=== PATIENT | female | born 1935 | race African-American/Black ===

== ENCOUNTER 2017-04-25 17:07 | Inpatient (IN) ==
[2017-04-25 17:51] LABS: Basophils % 0.7 % (0.0-0.8); Eosinophils % 0.7 % (0.00-10.9); Hematocrit 37.7 VOL% (35.7-47.0); Hemoglobin 12.4 GM/DL (12.0-16.0); Immature Granulocytes % 0.2 %; Immature Granulocytes Absolute 0.01 #; Lymphocytes # 2.5 10*3/uL (1.4-4.0); Lymphocytes % 40.9 % (21.3-54.2); Mean Corpuscular HGB Conc 32.9 GM/DL (32-36); Mean Corpuscular Hemoglobin 28 PG (27-34); Mean Corpuscular Volume 86.3 FL (87-102); Mean Platelet Volume 10.7 FL (9.6-12.0); Monocytes # 0.5 10*3/uL (0.11-0.8); Monocytes % 8.6 % (1.7-12.7); Neutrophils % 48.9 % (38.7-73.9); Platelet Count 253 T/CUMM (130-400); Red Blood Count 4.37 MC/CUMM (3.8-5.5); White Blood Count 6.1 T/CUMM (4-12)
--- NOTE | 2017-04-25 17:52 | EKG Report ---
Stationary ECG Study [facility] ER Test Date: 04/25/2017 5:52:17 PM Pat Name: MANUEL MORIN Department: Room: Gender: F Spraying Machine Operator: : [id number] Requested by: Cleveland Burton Order Number: [id number] Reading MD: FERMIN PRIDE Intervals [place] Rate: 59 P: 258 IA: 215 QRS: -24 QRSD: 128 T: 140 QT: 424 QTc: 424 Interpretive Statements ELECTRONIC ATRIAL PACEMAKER LEFT AXIS DEVIATION POSSIBLE RIGHT VENTRICULAR CONDUCTION DELAY LEFT VENTRICULAR HYPERTROPHY AND ST-T CHANGE Electronically Signed On 04-26-17 10:31:48 CDT by FERMIN PRIDE [email or web address]
--- NOTE | 2017-04-25 18:08 | XRay Report ---
Portable chest Date: 04/25/2017 Clinical history: Dizziness, nausea, vomiting Comparison: 02/19/2016 Technique: Portable AP sitting chest Findings: The heart is minimally enlarged with stable right subclavian atrioventricular permanent pacemaker. Chronic atelectatic scarring left lower lung zone with stable mediastinum. Postoperative findings in the thyroid bed. Osteopenia with degenerative changes. Impression: Stable cardiomegaly and right subclavian atrioventricular permanent pacemaker. Chronic atelectatic scarring in the left lower lung zone with no acute cardiopulmonary pathology identified. Osteopenia. PROCEDURE INTERPRETED AT [facility] DEPARTMENT OF RADIOLOGY Final Report Signed by: Dr. Zari Larry
--- NOTE | 2017-04-25 18:09 | XRay Report ---
Exam: XR KUB Date: 04/25/2017 5:46 PM Comparison: 01/02/2015 Indication: Nausea, vomiting, abdominal cramping Technique:[Supine abdomen] Findings: Nonobstructed bowel gas pattern with increased fecal material. Arterial calcifications with degenerative changes and osteopenia. Permanent pacemaker. Impression: Nonobstructed bowel gas pattern with increased fecal material consistent with constipation. Vascular calcifications with permanent pacemaker. Osteopenia. PROCEDURE INTERPRETED AT [facility] DEPARTMENT OF RADIOLOGY Final Report Signed by: Dr. Zari Larry
[2017-04-25] MEDS ORDERED: ONDANSETRON 4 MG/2 ML VIAL ONE ×2 (18:25→19:06)
[2017-04-25] MEDS ORDERED: ONDANSETRON 4 MG/2 ML VIAL IV STA ×2 (18:26→19:05)
[2017-04-25 18:28] LABS: Alanine Aminotransferase 19 U/L (13-56); Albumin 3.4 G/DL (3.4-5.0); Alkaline Phosphatase 166 U/L (45-117); Aspartate Amino Transferase 29 U/L (0-37); Bilirubin,Total < 0.39 MG/DL (0.2-1.0); Blood Urea Nitrogen 17 MG/DL (7-18); Calcium 8.5 MG/DL (8.5-10.1); Glucose 114 MG/DL (74-106); Magnesium 2.1 MG/DL (1.8-2.4); Osmolality,Calculated 279.5 MOS/KG (273-304); Potassium 4.4 MMOL/L (3.5-5.1); Sodium 139 MMOL/L (136-145); Total Protein 8.3 G/DL (6.4-8.3)
[2017-04-25 18:35] LABS: Apearance,Urine CLOUDY (Clear); Bacteria,Urine Many /HPF (Few); Bilirubin,Urine Negative (Negative); Blood, Urine Moderate mg/dL (Negative); Glucose,Urine (UA) Negative (Negative); Ketones,Urine Negative (Negative); Nitrite,Urine Negative (Negative); Protein,Urine 30 MG/DL; RBC,Urine 123 /HPF (0-4); Urine Color Yellow (Yellow); Urine Specific Gravity 1.014 (1.001-1.035); Urine Urobilinogen < 2.0 EU/DL (0.2-1.0); WBC,Urine 288 /HPF (0-6)
[2017-04-25] MEDS ORDERED: cefTRIAXone 1,000 MG in SODIUM CHLORIDE 0.9% 100 ML IV STA (18:45)
[2017-04-25] MEDS ORDERED: cefTRIAXone 1,000 MG VIAL ONE (18:49)
--- NOTE | 2017-04-25 19:36 | Emergency Department Note ---
Velma Rose Brittany, am scribing for, and in the presence of, Meng Zhong MD 18:58. Trevin Rose Charles R, MD, personally performed the services described in this documentation, ascribed by Mora Carreon in my presence, and it is both accurate and complete 936 . Arrival - Arrival Chief Complaint: Nausea/Vomiting/Diarrhea Stated Complaint: N/V ED Nursing Triage Note: PT BROUGHT BY EMS FROM [facility] FOR EVALUATION OF HEADACHE AND NAUSEA ALL DAY TODAY AND 2 EPISODES OF VOMITING. DILANTIN LEVEL ON 04/22 WAS 34.3 Mode of Arrival: Stretcher Limitations: No Limitations Source: Patient, Family Time Seen by Provider: 04/25/17 18:25 - History of Present Illness HPI Narrative: This is an 82 y/o black female, who presents to the ED by EMS with c/o GILL and vomiting which started earlier today. Pt and family are both poor historians so this will be limited. Per family, pt has been nauseated and vomiting all day. Pt states at times she is SOB. Pt has a HX of seizures and apparently takes Dilantin. Her Dilantin level was 34.4 3 days ago. Pt has no other complaints/ pain in the ED at this time. Pt has a PMHx of CVA, HTN, pacemaker, seizures, A- flutter, thyroid disorder, RA, GOUT, respiratory problems, and cardiac dysrhtyhmia. Pt has had a neurological surgery. Pt has a family medical Hx of heart disease, HTN, and stroke. Pt is a former smoker. Onset (ago): hour(s) (Started earlier this morning) Consistency: constant Severity: moderate Allergies/Adverse Reactions: Allergies Allergy/AdvReac Type Severity Reaction Status Date / Time tuberculin,PPD,multi-puncture Allergy Unknown/Unable Verified 04/25/17 17:20 to obtain Home Medications: Home Medications Medication Instructions Recorded Confirmed Type Aspirin [Ecotrin] 81 mg PO DAILY 05/07/15 04/25/17 History HYDROcodone/ACETAMIN 10-325 [[place] 1 tablet PO Q6H PRN #0 tablet 05/07/15 Rx 10-325] Metoprolol Succinate Xl [Toprol Xl] 50 mg PO DAILY tablet 05/07/15 04/25/17 Rx amLODIPine [Norvasc] 10 mg PO DAILY tablet 05/07/15 04/25/17 Rx Gabapentin Cap/Tab [Neurontin 100 mg PO BID capsule 06/19/15 04/25/17 Rx Cap/Tab] Warfarin [Coumadin] 5.5 mg PO SUTUTHSA 02/19/16 04/25/17 History Phenytoin ER Cap [Dilantin Cap] 100 mg PO BEDTIME 02/20/16 04/25/17 History Acetamin/Codeine 300-30 Tab 1 tablet PO Q4H PRN 04/25/17 04/25/17 History [Tylenol/Codeine #3] Calcium (Carb)/Vit D 250-125 1 tablet PO DAILY 04/25/17 04/25/17 History [Oscal 250 + D] Magnesium Hydroxide [Milk of 30 ml PO Q24H PRN 04/25/17 04/25/17 History Magnesia] Naproxen Sodium [Aleve] 440 mg PO Q24H PRN 04/25/17 04/25/17 History Ondansetron HCl 4 mg PO Q4H PRN 04/25/17 04/25/17 History Pantoprazole Tab [Protonix Tab] 40 mg PO QAM 04/25/17 04/25/17 History Potassium Chloride 20 meq PO DAILY 04/25/17 04/25/17 History Warfarin Sodium 5.5 mg PO SUTUTHSA 04/25/17 04/25/17 History Warfarin Sodium 6 mg PO MOWEFR 04/25/17 04/25/17 History traZODone [Desyrel] 50 mg PO BEDTIME 04/25/17 04/25/17 History Review of System - Review of System 12 point system: reviewed and no additional remarkable complaints except as stated - Review of System Gastrointestinal: Present: nausea, vomiting Neurological: Present: headache Medical,Surgical,& Family Hx - Medical History Cardio: History of: Cardiac Dysrhythmia, Hypertension, Pacemaker, Cardiovascular Problems (A flutter, pacemaker) Neurology: History of: Cerebrovascular Accident, Migraine, Seizures (unknown date) Endocrine: History of: Thyroid Disorder Rheumatology: History of;: Gout, Rheumatoid Arthritis Respiratory: History of: Pneumonia, Respiratory Problems Musculoskeletal: No history of: Amputation Hematology: No history of: Blood Transfusion Reaction Other: No history of: Anesthesia Reactions - Surgical History Cardiac Surgeries: Patient Denies: Cardiac Catheterization Neurologic Surgeries: Surgical HX of: Neurologic Surgery (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 years ago) HEENT Surgeries: Patient denies: Tonsilectomy & Adenoidectomy Abdominal Surgeries: Patient denies: Abdominal Surgery Reproductive Surgeries: Patient denies;: Genitourinary Surgery, Gynecologic Surgery - Family History Family History: Reports;: Family Heart Disease, Family Hypertension, Family Stroke Denies;: Family Anesthesia Reaction, Family Cancer, Family Diabetes - Social History Smoking Status: Former smoker Frequency of Alcohol Use: None Type of Drug Use: None Exam Vital Signs: Vital Signs Temperature 97.5 F L 04/25/17 17:07 Pulse Rate 60 04/25/17 18:45 Respiratory Rate 18 04/25/17 18:45 Blood Pressure 190/72 04/25/17 18:45 O2 Sat by Pulse Oximetry 96 04/25/17 18:45 - General General appearance: alert, in no apparent distress - Head Head exam: Present: atraumatic, normocephalic, normal inspection - Eye Eye exam: Present: other ([place]). Absent: nystagmus, miosis, mydriasis - ENT ENT exam: Present: normal exam, normal oropharynx, mucous membranes moist, TM's normal bilaterally, normal external ear exam - Neck Neck exam: Present: normal inspection, full ROM, trachea midline. Absent: tenderness, meningismus, lymphadenopathy, thyromegaly - Chest Chest inspection: Present: normal inspection, symmetric chest wall rise. Absent : tenderness, rash, abscess - Respiratory Respiratory exam: Present: rhonchi - Cardiovascular Cardiovascular exam: Present: normal rhythm, bradycardia, normal heart sounds. Absent: murmur, rubs, gallop, clicks, JVD - Abdominal Exam Abdominal exam: Present: soft, normal bowel sounds. Absent: distention, tenderness, guarding, rebound, rigidity - Rectal Exam Rectal exam: Present: deferred - Extremities Exam Extremities exam: Present: normal inspection, full ROM, normal capillary refill. Absent: tenderness, pedal edema, joint swelling, calf tenderness - Back Exam Back exam: Present: normal inspection, full ROM. Absent: tenderness, muscle spasm, rashes - Neurological Exam Neurological exam: Present: alert, oriented X3, CN II-XII intact. Absent: motor sensory deficit - Psychiatric Psychiatric exam: Present: normal affect, normal mood. Absent: depressed, agitated, anxious, manic - Skin Skin exam: Present: warm, dry, intact, normal color, other (Poor skin [place]). Absent: rash, cyanosis, diaphoresis, erythema, pallor, mottled Course - Consultations Consultation #1: Hospitalist will admit patient Time: 19:34 Results - Labs CBC & BMP: 04/25/17 17:45 04/25/17 17:45 Lab Results: I have reviewed the patients labs - Diagnostic Findings Procedure: Chest x-ray: report reviewed by me ( Stable cardiomegaly and right subclavian atrioventricular permanent pacemaker. Chronic atelectatic scarring in the left lower lung zone with no acute cardiopulmonary pathology identified. Osteopenia. ), KUB x-ray: report reviewed by me (Nonobstructed bowel gas pattern with increased fecal material consistent with constipation. Vascualr calcifications with permanent pacemaker. Osteopenia. ), CT Abdomen and Pelvis: pending Critical Care Time Critical Care Time: Yes Total Critical Care Time: 60 Disposition Clinical Impression: Gastroenteritis, Urinary tract infection, Nausea & vomiting, Dilantin toxicity , Confusion, Seizure disorder Case discussed with: patient, patient's family Disposition: Still a Patient Condition: Guarded Time of Disposition: 19:36
--- NOTE | 2017-04-25 19:54 | CT Report ---
Referring physician: Meng Zhong Exam: CT brain without contrast Date: 04/25/2017 Comparison: 03/09/2016 Reason: Confusion Technique: Axial images of the head were obtained without the use of contrast. Total DLP was 1025.60 mGy*cm. Findings: The right frontal horn remains larger in size than the left with no midline displacement. Prior bifrontal and right parietal craniotomies. Multiple cerebral hypodensities are noted especially in the right cerebral hemisphere. There is a hyperdense mass in the right parietal parafalcine area consistent with meningioma which measures 35 mm at the level of the previous measurement of 34 mm with surrounding edema. Stable abnormal base of skull with areas of rarefaction. Arterial calcifications. Minimal mucosal thickening/fluid in the paranasal sinuses. The mastoid air cells and are clear. Impression: Stable postoperative findings with chronic encephalomalacia/infarction in the right frontal, temporal, and parietal lobes. Right parietal meningioma which appears very minimally larger in size with adjacent edema. No evidence of hemorrhage or obvious acute infarction. The CT exam was performed using one or more of the following dose reduction techniques: Automated exposure control and adjustment of the mA and/or kV according to patient size. PROCEDURE INTERPRETED AT [facility] DEPARTMENT OF RADIOLOGY Final Report Signed by: Dr. Zari Larry
[2017-04-25] MEDS ORDERED: PROMETHAZINE 25 MG/1 ML VIAL IM PRN (20:21)
[2017-04-25] MEDS ORDERED: BISACODYL 5 MG TABLET PO PRN (20:21)
[2017-04-25] MEDS ORDERED: MORPHINE 2 MG/1 ML SYRINGE IV PRN (20:21)
[2017-04-25] MEDS ORDERED: ACETAMINOPHEN 325 MG TABLET PO PRN (20:21)
[2017-04-25] MEDS ORDERED: MAGNESIUM HYDROXIDE SUSP 30 ML UDCUP PO PRN (20:21)
--- NOTE | 2017-04-25 20:25 | Hospitalist History & Physical ---
Assessment and Plan (1) Acute UTI Status: Acute Current Visit: Yes (2) Infectious encephalopathy Status: Acute Current Visit: Yes (3) Intractable nausea and vomiting Status: Acute Current Visit: Yes Qualifiers: Vomiting type: unspecified Qualified Code(s): R11.2 - Nausea with vomiting , unspecified (4) Supratherapeutic INR Status: Acute Current Visit: Yes (5) Chronic a-fib Status: Acute Current Visit: Yes (6) Pacemaker Status: Acute Current Visit: Yes (7) Dilantin toxicity Status: Acute Current Visit: Yes Qualifiers: Encounter type: initial encounter Injury intent: accidental or unintentional Qualified Code(s): T42.0X1A - Poisoning by hydantoin derivatives , accidental (unintentional), initial encounter (8) Seizure disorder Status: Acute Current Visit: Yes (9) Right-sided uninodular goiter Status: Acute Current Visit: Yes (10) Hypertension Status: Acute Assessment and plan: Plan: Admit for IV antibiotics, check blood and urine cultures Hold Coumadin, recheck INR in a.m., no active bleeding Large goiter present for years according to the family Supportive care for abdominal pain, nausea vomiting Current Visit: Yes Qualifiers: Hypertension type: essential hypertension Qualified Code(s): I10 - Essential (primary) hypertension History of Present Illness Chief complaint: General malaise, nausea and vomiting, headache History of present illness: Ms. Lockhart is a 82 year old female who is here from the [facility] with nausea and vomiting and headache. She has history of hypertension, seizure disorder, A. fib with pacemaker and chronic anticoagulation. She appears encephalopathic and most of the history is provided by the family. They state they received a call from the snf regarding the patient having intractable nausea and vomiting. She had a headache as well, her CT scan is negative for acute pathology. Her Dilantin level was also found to be supratherapeutic as well as her INR. She reports abdominal pain, dizziness and persistent nausea. She denies abdominal pain or chest pain. She denies shortness of breath. Her symptoms are constant and severe. Home Medications Medication Instructions Recorded Confirmed Type Aspirin [Ecotrin] 81 mg PO DAILY 05/07/15 04/25/17 History HYDROcodone/ACETAMIN 10-325 [[place] 1 tablet PO Q6H PRN #0 tablet 05/07/15 Rx 10-325] Metoprolol Succinate Xl [Toprol Xl] 50 mg PO DAILY tablet 05/07/15 04/25/17 Rx amLODIPine [Norvasc] 10 mg PO DAILY tablet 05/07/15 04/25/17 Rx Gabapentin Cap/Tab [Neurontin 100 mg PO BID capsule 06/19/15 04/25/17 Rx Cap/Tab] Warfarin [Coumadin] 5.5 mg PO SUTUTHSA 02/19/16 04/25/17 History Phenytoin ER Cap [Dilantin Cap] 100 mg PO BEDTIME 02/20/16 04/25/17 History Acetamin/Codeine 300-30 Tab 1 tablet PO Q4H PRN 04/25/17 04/25/17 History [Tylenol/Codeine #3] Calcium (Carb)/Vit D 250-125 1 tablet PO DAILY 04/25/17 04/25/17 History [Oscal 250 + D] Magnesium Hydroxide [Milk of 30 ml PO Q24H PRN 04/25/17 04/25/17 History Magnesia] Naproxen Sodium [Aleve] 440 mg PO Q24H PRN 04/25/17 04/25/17 History Ondansetron HCl 4 mg PO Q4H PRN 04/25/17 04/25/17 History Pantoprazole Tab [Protonix Tab] 40 mg PO QAM 04/25/17 04/25/17 History Potassium Chloride 20 meq PO DAILY 04/25/17 04/25/17 History Warfarin Sodium 5.5 mg PO SUTUTHSA 04/25/17 04/25/17 History Warfarin Sodium 6 mg PO MOWEFR 04/25/17 04/25/17 History traZODone [Desyrel] 50 mg PO BEDTIME 04/25/17 04/25/17 History Allergies Allergy/AdvReac Type Severity Reaction Status Date / Time tuberculin,PPD,multi-puncture Allergy Unknown/Unable Verified 04/25/17 17:20 to obtain Medical,Surgical,& Family Hx - Medical History Cardio: History of: Cardiac Dysrhythmia, Hypertension, Pacemaker, Cardiovascular Problems (A flutter, pacemaker) Neurology: History of: Cerebrovascular Accident, Migraine, Seizures (unknown date) Endocrine: History of: Thyroid Disorder (Has a right-sided goiter "for many years," according to family) Rheumatology: History of;: Gout, Rheumatoid Arthritis Respiratory: History of: Pneumonia, Respiratory Problems Musculoskeletal: No history of: Amputation Hematology: No history of: Blood Transfusion Reaction Other: No history of: Anesthesia Reactions - Surgical History Cardiac Surgeries: Patient Denies: Cardiac Catheterization Neurologic Surgeries: Surgical HX of: Neurologic Surgery (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 years ago) HEENT Surgeries: Patient denies: Tonsilectomy & Adenoidectomy Abdominal Surgeries: Patient denies: Abdominal Surgery Reproductive Surgeries: Patient denies;: Genitourinary Surgery, Gynecologic Surgery - Family History Family History: Reports;: Family Heart Disease, Family Hypertension, Family Stroke Denies;: Family Anesthesia Reaction, Family Cancer, Family Diabetes - Social History Smoking Status: Former smoker Frequency of Alcohol Use: None Type of Drug Use: None Marital Status: Unknown Functional capacity: uses cane/walker Review of systems: A 12 point review of systems is negative except as specified in the HPI Exam - Constitutional Vitals: Period Temp Pulse Resp BP Sys/Candelario Pulse Ox Last 24 Hr 97.5 F-97.5 F 60-65 16-18 169-190/72-84 96-99 Exam: EXAM: CONSTITUTIONAL: non toxic, NAD HEENT: NC, AT, OP benign, JAKE, EOMI, large right-sided goiter lethargic, drowsy CV: RRR no m/g/r RESP: clear B/L, no w/r/r GI: abd soft, NT, ND, +bowel sounds INTEGUMENTARY: no lesions or rash EXTREMITIES: no c/c/e NEURO: no focal deficits PSYCH: Lethargic/drowsy but arousable Results - Labs CBC & BMP: 04/25/17 17:45 04/25/17 17:45 Lab Results: I have reviewed the past 24 hour labs - Impressions EKG with paced rhythm - Diagnostic Findings Procedure: Chest x-ray: image reviewed by me, report reviewed by me, KUB x-ray: image reviewed by me, report reviewed by me, CT - chest: image reviewed by me, report reviewed by me Quality Measures - VTE Contraindication to Pharmacological VTE Prophylaxis: Already on Theraputic Agent , No Prophylaxis Needed
[2017-04-25] MEDS ORDERED: WARFARIN 4 MG TABLET PO SCH (20:30)
[2017-04-25] MEDS ORDERED: SODIUM CHLORIDE 0.9% 1,000 ML IV SCH (20:30)
[2017-04-25 20:43] LABS: INR 4.5; PT Patient Result 52.9 SECS
[2017-04-25] MEDS ORDERED: PHENYTOIN ER 100 MG CAPSULE PO SCH (21:00)
[2017-04-25] MEDS: ONDANSETRON 4 MG/2 ML VIAL IV PRN (21:58)
[2017-04-25] MEDS: traZODone 50 MG TABLET PO SCH (22:06)
[2017-04-25] MEDS: GABAPENTIN 100 MG CAPSULE PO SCH (22:06)
[2017-04-25] MEDS: CEFEPIME 1,000 MG in SODIUM CHLORIDE 0.9% 100 ML IV SCH (22:06)
[2017-04-26 04:25] LABS: Basophils % 0.6 % (0.0-0.8); Eosinophils # 0.1 10*3/uL (0.0-0.87); Eosinophils % 0.8 % (0.00-10.9); Hematocrit 37.7 VOL% (35.7-47.0); Hemoglobin 12.2 GM/DL (12.0-16.0); Immature Granulocytes % 0.2 %; Immature Granulocytes Absolute 0.01 #; Lymphocytes # 3.4 10*3/uL (1.4-4.0); Lymphocytes % 51.6 % (21.3-54.2); Mean Corpuscular HGB Conc 32.4 GM/DL (32-36); Mean Corpuscular Hemoglobin 28 PG (27-34); Mean Corpuscular Volume 86.1 FL (87-102); Mean Platelet Volume 10.6 FL (9.6-12.0); Monocytes # 0.6 10*3/uL (0.11-0.8); Monocytes % 9.6 % (1.7-12.7); Neutrophils # 2.4 10*3/uL (1.4-7.4); Neutrophils % 37.2 % (38.7-73.9); Platelet Count 226 T/CUMM (130-400); Red Blood Count 4.38 MC/CUMM (3.8-5.5); Red Cell Distribution Width 13.9 % (9.3-17.3); White Blood Count 6.5 T/CUMM (4-12)
[2017-04-26 04:39] LABS: INR 4.2
[2017-04-26 04:41] LABS: PT Patient Result 48.3 SECS
[2017-04-26 04:54] LABS: Albumin 3.1 G/DL (3.4-5.0); Bilirubin,Total 0.7 MG/DL (0.2-1.0); Calcium 8.7 MG/DL (8.5-10.1); Magnesium 1.9 MG/DL (1.8-2.4); Osmolality,Calculated 282.1 MOS/KG (273-304); Total Protein 7.5 G/DL (6.4-8.3)
[2017-04-26 04:55] LABS: Hypochromasia 1+; Lymphocytes 47 % (20-55); Platelet Estimate Adequate; Segmented Neutrophils 44 % (50-85); Total Cells Counted 100
[2017-04-26] MEDS: ONDANSETRON 4 MG/2 ML VIAL IV PRN (09:05)
[2017-04-26] MEDS: GABAPENTIN 100 MG CAPSULE PO SCH ×2 (09:06→20:06)
[2017-04-26] MEDS: amLODIPine 10 MG TABLET PO SCH (09:06)
[2017-04-26] MEDS: PANTOPRAZOLE 40 MG TABLET PO SCH (09:06)
[2017-04-26] MEDS: CALCIUM (CARBONATE)/VITAMIN D 250 MG-125 UNIT TABLET PO SCH (09:06)
[2017-04-26] MEDS: METOPROLOL SUCCINATE XL 50 MG TABLET PO SCH (09:06)
[2017-04-26] MEDS: ASPIRIN EC 81 MG TABLET PO SCH (09:06)
[2017-04-26] MEDS: POTASSIUM CHLORIDE 20 MEQ TABLET PO SCH (09:06)
[2017-04-26] MEDS: CEFEPIME 1,000 MG in SODIUM CHLORIDE 0.9% 100 ML IV SCH (10:51)
--- NOTE | 2017-04-26 11:07 | Hospitalist Progress Note ---
Assessment and Plan (1) Acute UTI Status: Acute Assessment and plan: Will continue cefepime F/u urine culture Current Visit: Yes (2) Supratherapeutic INR Status: Acute Assessment and plan: Continue to hold coumadin Current Visit: Yes (3) Chronic a-fib Status: Acute Assessment and plan: Rate controlled Holding coumadin Current Visit: Yes (4) Dilantin toxicity Status: Acute Assessment and plan: Holding Recheck daily Current Visit: Yes Qualifiers: Encounter type: initial encounter Injury intent: accidental or unintentional Qualified Code(s): T42.0X1A - Poisoning by hydantoin derivatives , accidental (unintentional), initial encounter (5) Seizure disorder Status: Acute Assessment and plan: Holding dilantin Current Visit: Yes (6) Right-sided uninodular goiter Status: Acute Current Visit: Yes (7) Hypertension Status: Acute Current Visit: Yes Qualifiers: Hypertension type: essential hypertension Qualified Code(s): I10 - Essential (primary) hypertension Hospitalist: Subjective Interval history: No acute events overnight. She is oriented x3 today. Reports that she feels better. Exam - Constitutional Vitals: Period Temp Pulse Resp BP Sys/Candelario Pulse Ox Last 24 Hr 97.2 F-98.5 F 60-70 16-22 134-190/66-90 94-99 General appearance: normal weight - Head Head exam: Present: normocephalic, atraumatic - Eye Eye exam: Present: EOMI Pupils: Present: JAKE - ENT ENT exam: Present: normal exam - Neck Neck exam: Present: normal inspection - Respiratory Respiratory exam: Present: clear to auscultation bilaterally. Absent: rhonchi, wheezes - Cardiovascular Cardiovascular exam: Present: regular rate and rhythm - GI/Abdominal GI/Abdominal exam: Present: normal bowel sounds, soft. Absent: tenderness, rebound - Extremities Exam Extremities exam: Present: normal inspection - Back Exam Back exam: Present: normal inspection - Neurological Exam Neurological exam: Present: alert, oriented X3 - Psychiatric Psychiatric exam: Present: normal affect, normal mood - Skin Skin exam: Present: warm, intact Results - Labs CBC & BMP: 04/26/17 03:31 04/26/17 03:31 Quality Measures - VTE Contraindication to Pharmacological VTE Prophylaxis: Already on Theraputic Agent , No Prophylaxis Needed
[2017-04-26] MEDS ORDERED: WARFARIN 3 MG TABLET PO SCH (18:00)
[2017-04-26] MEDS: traZODone 50 MG TABLET PO SCH (20:06)
[2017-04-27] MEDS: CEFEPIME 1,000 MG in SODIUM CHLORIDE 0.9% 100 ML IV SCH ×2 (00:34→13:20)
[2017-04-27 06:38] LABS: Basophils # 0.1 10*3/uL (0.0-0.2); Basophils % 0.7 % (0.0-0.8); Eosinophils # 0.1 10*3/uL (0.0-0.87); Eosinophils % 1.9 % (0.00-10.9); Hematocrit 36.1 VOL% (35.7-47.0); Hemoglobin 11.6 GM/DL (12.0-16.0); Immature Granulocytes % 0.3 %; Immature Granulocytes Absolute 0.02 #; Lymphocytes # 3.6 10*3/uL (1.4-4.0); Lymphocytes % 52.3 % (21.3-54.2); Mean Corpuscular HGB Conc 32.1 GM/DL (32-36); Mean Corpuscular Hemoglobin 28 PG (27-34); Mean Corpuscular Volume 86.6 FL (87-102); Mean Platelet Volume 10.7 FL (9.6-12.0); Monocytes # 0.6 10*3/uL (0.11-0.8); Monocytes % 8.8 % (1.7-12.7); Neutrophils # 2.5 10*3/uL (1.4-7.4); Platelet Count 232 T/CUMM (130-400); Red Blood Count 4.17 MC/CUMM (3.8-5.5); Red Cell Distribution Width 14.2 % (9.3-17.3); White Blood Count 6.9 T/CUMM (4-12)
[2017-04-27 06:53] LABS: INR 3.4
[2017-04-27 06:55] LABS: PT Patient Result 38.7 SECS
[2017-04-27 07:01] LABS: Eosinophils 3 % (0-10); Hypochromasia 1+; Lymphocytes 43 % (20-55); Ovalocytes Slight; Platelet Estimate Adequate; Segmented Neutrophils 45 % (50-85); Total Cells Counted 100
[2017-04-27 07:14] LABS: Calcium 8.5 MG/DL (8.5-10.1); Magnesium 2.2 MG/DL (1.8-2.4); Osmolality,Calculated 283.1 MOS/KG (273-304); Potassium 4.1 MMOL/L (3.5-5.1)
[2017-04-27] MEDS: POTASSIUM CHLORIDE 20 MEQ TABLET PO SCH (09:03)
[2017-04-27] MEDS: CALCIUM (CARBONATE)/VITAMIN D 250 MG-125 UNIT TABLET PO SCH (09:03)
[2017-04-27] MEDS: ASPIRIN EC 81 MG TABLET PO SCH (09:03)
[2017-04-27] MEDS: PANTOPRAZOLE 40 MG TABLET PO SCH (09:03)
[2017-04-27] MEDS: METOPROLOL SUCCINATE XL 50 MG TABLET PO SCH (09:03)
[2017-04-27] MEDS: GABAPENTIN 100 MG CAPSULE PO SCH ×2 (09:03→20:45)
[2017-04-27] MEDS: amLODIPine 10 MG TABLET PO SCH (09:03)
[2017-04-27 09:31] LABS: Folate 10.7 NG/ML (5.4-24.0)
--- NOTE | 2017-04-27 11:13 | Hospitalist Progress Note ---
Assessment and Plan (1) Acute UTI Status: Acute Assessment and plan: Will continue cefepime urine culture growing E.coli Current Visit: Yes (2) Supratherapeutic INR Status: Acute Assessment and plan: Continue to hold coumadin Current Visit: Yes (3) Chronic a-fib Status: Chronic Assessment and plan: Rate controlled Holding coumadin Current Visit: Yes (4) Dilantin toxicity Status: Acute Assessment and plan: Holding Recheck daily Current Visit: Yes Qualifiers: Encounter type: initial encounter Injury intent: accidental or unintentional Qualified Code(s): T42.0X1A - Poisoning by hydantoin derivatives , accidental (unintentional), initial encounter (5) Seizure disorder Status: Chronic Assessment and plan: Holding dilantin Current Visit: Yes (6) Right-sided uninodular goiter Status: Chronic Current Visit: Yes (7) Hypertension Status: Chronic Current Visit: Yes Qualifiers: Hypertension type: essential hypertension Qualified Code(s): I10 - Essential (primary) hypertension Hospitalist: Subjective Interval history: No acute events overnight. This morning reports abdominal discomfort and nausea. Exam - Constitutional Vitals: Period Temp Pulse Resp BP Sys/Candelario Pulse Ox Last 24 Hr 98.0 F-98.9 F 58-70 16-20 133-156/62-87 94-97 General appearance: normal weight - Head Head exam: Present: normocephalic, atraumatic - Eye Eye exam: Present: EOMI Pupils: Present: JAKE - ENT ENT exam: Present: normal exam - Neck Neck exam: Present: normal inspection - Respiratory Respiratory exam: Present: clear to auscultation bilaterally. Absent: rhonchi, wheezes - Cardiovascular Cardiovascular exam: Present: regular rate and rhythm - GI/Abdominal GI/Abdominal exam: Present: normal bowel sounds, tenderness, soft - Extremities Exam Extremities exam: Present: normal inspection - Back Exam Back exam: Present: normal inspection - Neurological Exam Neurological exam: Present: alert - Psychiatric Psychiatric exam: Present: normal affect, normal mood - Skin Skin exam: Present: warm, intact Results - Labs CBC & BMP: 04/27/17 06:15 04/27/17 06:15 Quality Measures - VTE Contraindication to Pharmacological VTE Prophylaxis: Already on Theraputic Agent , No Prophylaxis Needed
--- NOTE | 2017-04-27 12:07 | XRay Report ---
XR KUB Indication: Generalized abdominal pain Comparison: Abdominal x-ray dated April 25, 2017 Technique: Single frontal view of the abdomen Findings: Nonspecific nonobstructive bowel gas pattern. Presumed pelvic phleboliths. Diffuse osteopenia. IMPRESSION: No acute abnormality demonstrated. PROCEDURE INTERPRETED AT [facility] DEPARTMENT OF RADIOLOGY Final Report Signed by: Dr Cuauhtemoc Gold
[2017-04-27] MEDS ORDERED: WARFARIN 3 MG TABLET PO SCH (18:00)
[2017-04-27] MEDS ORDERED: WARFARIN 4 MG TABLET PO SCH (18:00)
[2017-04-27] MEDS: traZODone 50 MG TABLET PO SCH (20:45)
[2017-04-28] MEDS: CEFEPIME 1,000 MG in SODIUM CHLORIDE 0.9% 100 ML IV SCH (02:22)
[2017-04-28 05:38] LABS: INR 2.3; PT Patient Result 25.8 SECS
[2017-04-28] MEDS: CALCIUM (CARBONATE)/VITAMIN D 250 MG-125 UNIT TABLET PO SCH (09:03)
[2017-04-28] MEDS: GABAPENTIN 100 MG CAPSULE PO SCH (09:03)
[2017-04-28] MEDS: PANTOPRAZOLE 40 MG TABLET PO SCH (09:03)
[2017-04-28] MEDS: POTASSIUM CHLORIDE 20 MEQ TABLET PO SCH (09:03)
[2017-04-28] MEDS: amLODIPine 10 MG TABLET PO SCH (09:03)
[2017-04-28] MEDS: METOPROLOL SUCCINATE XL 50 MG TABLET PO SCH (09:03)
[2017-04-28] MEDS: ASPIRIN EC 81 MG TABLET PO SCH (09:03)
--- NOTE | 2017-04-28 10:52 | Discharge Summary ---
<Domenica Eldridgeda - Last Filed: 04/28/17 10:58> Hospital Course - Hospital Course Hospital Course: This is a chronically ill 82-year-old female that presented to the ED at [facility] on April 25, 2017 from [facility] for the evaluation of nausea, vomiting and diarrhea. Patient has a medical history significant for: Atrial fibrillation, hypertension, cerebrovascular accident, atrial flutter, rheumatoid arthritis, gouty arthritis, and remote nicotine use. Patient has a surgical history significant for: adenoidectomy, tonsillectomy, and brain tumor removal. Apparently, the patient had multiple episodes of nausea, vomiting, and diarrhea 2 days prior to presentation. In addition the patient's Dilantin level was noted at 34.3. The [facility] staff became alarmed and notified the on-call doctor. The patient was subsequently transferred to the ED for further evaluation. At the time of ED presentation, patient was noted grossly high hypertensive with a blood pressure noted at 190/72. Urinalysis reported moderate amount of leukocytes. Chemistry panel was significant for glucose of 114, alkaline phosphate of 166, and globulin at 4.9. Her INR was noted at 4.5 and PT was noted at 52.9. Chest x-ray reported stable cardiomegaly and right subclavian atrial-ventricular pacemaker placement, chronic atelectatic scarring in the left lower lung base with no acute cardiopulmonary pathology identified, and osteopenia. KUB reported nonobstructive bowel gas pattern with increased fecal material consistent with constipation, vascular calcifications with permanent pacemaker, and osteopenia. CT head reported stable postoperative findings with chronic encephalomalacia/infarction in the right frontal, temporal, and parietal lobes. Right parietal meningioma which appears very minimally large in size with adjacent edema and no evidence of hemorrhage or obvious acute infarction. The patient was subsequently admitted to the hospitalist services for continuation of care. The patient was admitted. Blood and urine cultures were obtained. Empiric antibiotics were started. Coumadin was held at the time of ED presentation due to elevated INR; however the patient had no active bleeding. Dilantin was placed on hold due to toxicity. The patient's condition gradually improved. Today her INR is noted at 2.3 and her Coumadin dose has been resumed at a lower dose. Dilantin level is now therapeutic at 15.8. We will also resume this at a lower dose. She has now reached maximal benefit of inpatient stay and will be discharged back to [facility]. Discharge Plan - Discharge Data Disposition: Disch/Xfer to Snf - Discharge Medications New Warfarin [Coumadin] 5 mg PO DAILY@1800 #30 tablet cephALEXin [Keflex] 500 mg PO Q12HR #6 capsule Continue HYDROcodone/ACETAMIN 10-325 [[place] 10-325] 1 tablet PO Q6H PRN #0 tablet PRN Reason: Pain Moderate (4-7) amLODIPine [Norvasc] 10 mg PO DAILY tablet Metoprolol Succinate Xl [Toprol Xl] 50 mg PO DAILY tablet Magnesium Hydroxide [Milk of Magnesia] 30 ml PO Q24H PRN PRN Reason: Constipation Potassium Chloride 20 meq PO DAILY Acetamin/Codeine 300-30 Tab [Tylenol/Codeine #3] 1 tablet PO Q4H PRN PRN Reason: Pain traZODone [Desyrel] 50 mg PO BEDTIME Ondansetron HCl 4 mg PO Q4H PRN PRN Reason: Nausea/Vomiting Pantoprazole Tab [Protonix Tab] 40 mg PO QAM Calcium (Carb)/Vit D 250-125 [Oscal 250 + D] 1 tablet PO DAILY Naproxen Sodium [Aleve] 440 mg PO Q24H PRN PRN Reason: Pain Aspirin [Ecotrin] 81 mg PO DAILY Gabapentin Cap/Tab [Neurontin Cap/Tab] 100 mg PO BID capsule Changed Phenytoin ER Cap [Dilantin Cap] 50 mg PO BEDTIME #15 tablet Discontinued Warfarin [Coumadin] 5.5 mg PO SUTUTHSA Warfarin Sodium 5.5 mg PO SUTUTHSA Warfarin Sodium 6 mg PO MOWEFR - Follow Up or Referral - Forms/Instructions Instructions: Urinary Tract Infection in Women (DC), Gastroenteritis (DC) Exam - Constitutional Vitals: Period Temp Pulse Resp BP Sys/Candelario Pulse Ox Last 24 Hr 97.2 F-99.2 F 60-106 16-20 127-150/56-87 93-97 Discharge Results Procedures and tests throughout hospitalization: Pending Orders 04/25/17 20:49 Blood Culture Stat Labs on day of discharge: Labs from last 24 hours 04/28/17 04/28/17 04:35 04:35 INR 2.3 PT Patient/Control Mix 25.8 D Phenytoin 15.8 Preliminary micro results at discharge 04/25/17 20:49 Blood Culture - Preliminary Blood No growth at 1 day 04/25/17 20:42 Blood Culture - Preliminary Blood No growth at 1 day DS: Provider Date of admission: 04/25/17 20:21 Primary care physician: . No PCP Attending physician on admission: Benjamín Osman DO Consults: 04/27/17 11:24 Consult to Occupational Therapy [CONS] Routine Reason for Occupational Therapy: Evaluate and Treat Consult to Physical Therapy [CONS] Routine Reason for Physical Therapy: Evaluate and Treat Discharging clinician: Laura Eldridge CNP <Samuel Dumont - Last Filed: 04/28/17 11:16> Hospital Course - Time spent with patient Time with patient DS: Less than 30 minutes (30) Diagnosis - Discharge Diagnosis (1) Acute UTI Status: Resolved (2) Supratherapeutic INR Status: Resolved (3) Chronic a-fib Status: Chronic (4) Dilantin toxicity Status: Resolved (5) Seizure disorder Status: Chronic (6) Right-sided uninodular goiter Status: Chronic (7) Hypertension Status: Chronic Discharge Plan - Discharge Data Condition at Discharge: Stable Discharge Diet: advance to your usual diet Activity: increase activity as tolerated Hygiene: no restrictions Weight Bearing at Discharge: weight bear as tolerated Driving: no restrictions Exam - Constitutional General appearance: normal weight - Head Head exam: Present: normocephalic, atraumatic - Eye Eye exam: Present: EOMI Pupils: Present: JAKE - ENT ENT exam: Present: normal exam - Neck Neck exam: Present: normal inspection - Respiratory Respiratory exam: Present: clear to auscultation bilaterally. Absent: wheezes - Cardiovascular Cardiovascular exam: Present: regular rate and rhythm - GI/Abdominal GI/Abdominal exam: Present: normal bowel sounds, soft. Absent: tenderness, rebound - Extremities Exam Extremities exam: Present: normal inspection - Back Exam Back exam: Present: normal inspection - Neurological Exam Neurological exam: Present: alert, oriented X3 - Psychiatric Psychiatric exam: Present: normal affect, normal mood - Skin Skin exam: Present: warm, intact
[2017-04-28 11:24] VITALS: BP 140/89
== END 2017-04-28 12:44 | DRG 689 ==
LOC: EDUNIT# → EDBD → N.ED 17:07 → SUATTDRO 20:21 → N.EDINP 20:21 → N.5E 21:05
PROVIDERS: ADMIT Internal Medicine; ATTEND Internal Medicine

== ENCOUNTER 2018-11-09 11:28 | Observation (INO) ==
[2018-11-09] MEDS ORDERED: SODIUM CHLORIDE 0.9% 500 ML IV STA (11:53)
[2018-11-09] MEDS ORDERED: PANTOPRAZOLE 40 MG VIAL IV STA (11:53)
[2018-11-09] MEDS ORDERED: METOCLOPRAMIDE 10 MG/2 ML VIAL IV STA (11:55)
[2018-11-09 12:20] LABS: Basophils # 0.1 10*3/uL (0.0-0.2); Basophils % 1.2 % (0.0-0.8); Eosinophils # 0.1 10*3/uL (0.0-0.87); Eosinophils % 0.8 % (0.00-10.9); Hematocrit 41.6 VOL% (35.7-47.0); Immature Granulocytes % 0.3 %; Immature Granulocytes Absolute 0.02 #; Lymphocytes # 2.4 10*3/uL (1.4-4.0); Lymphocytes % 37.4 % (21.3-54.2); Mean Corpuscular HGB Conc 31.3 GM/DL (32-36); Mean Corpuscular Hemoglobin 28 PG (27-34); Mean Corpuscular Volume 89.5 FL (87-102); Mean Platelet Volume 10.3 FL (9.6-12.0); Monocytes # 0.4 10*3/uL (0.11-0.8); Monocytes % 6.1 % (1.7-12.7); Neutrophils # 3.5 10*3/uL (1.4-7.4); Neutrophils % 54.2 % (38.7-73.9); Platelet Count 335 T/CUMM (130-400); Red Blood Count 4.65 MC/CUMM (3.8-5.5); Red Cell Distribution Width 13.9 % (9.3-17.3); White Blood Count 6.4 T/CUMM (4-12)
[2018-11-09 12:54] LABS: Alanine Aminotransferase 20 U/L (13-56); Albumin 3.1 G/DL (3.4-5.0); Alkaline Phosphatase 167 U/L (45-117); Amylase 47 U/L (25-115); Aspartate Amino Transferase 28 U/L (0-37); Bilirubin,Total < 0.39 MG/DL (0.2-1.0); Blood Urea Nitrogen 16 MG/DL (7-18); Calcium 8.6 MG/DL (8.5-10.1); Glucose 84 MG/DL (74-106); Osmolality,Calculated 276.5 MOS/KG (273-304); Potassium 4.9 MMOL/L (3.5-5.1); Sodium 139 MMOL/L (136-145); Total Protein 8.6 G/DL (6.4-8.3)
[2018-11-09 13:43] LABS: PT Patient Result 174.1 SECS
[2018-11-09 13:45] LABS: INR 16.4
[2018-11-09] MEDS ORDERED: PHYTONADIONE 10 MG/1 ML AMP SUBCUT STA (14:04)
[2018-11-09 14:29] LABS: Apearance,Urine Slightly Hazy (Clear); Bilirubin,Urine Negative (Negative); Blood, Urine Large mg/dL (Negative); Glucose,Urine (UA) Negative (Negative); Hyaline Casts,Urine 18 /LPF (0-3); Ketones,Urine 5 mg/dL (Negative); Mucus,Urine Few /LPF (Occasional); Nitrite,Urine Negative (Negative); Protein,Urine Negative; RBC,Urine 59 /HPF (0-4); Squamous Epithelial Cell,Urine Occasional /HPF (0-10); Urine Color Yellow (Yellow); Urine Specific Gravity 1.021 (1.001-1.035); Urine Urobilinogen < 2.0 EU/DL (0.2-1.0); WBC,Urine 2 /HPF (0-6)
[2018-11-09] MEDS ORDERED: SODIUM CHLORIDE 0.9% 1,000 ML IV PRN (14:41)
[2018-11-09] MEDS ORDERED: DOCUSATE SODIUM 100 MG CAPSULE PO PRN (14:46)
[2018-11-09] MEDS ORDERED: ACETAMINOPHEN 325 MG TABLET PO PRN (14:46)
[2018-11-09] MEDS ORDERED: MENTHOL TOP SCH (17:04)
[2018-11-09] MEDS ORDERED: METHYL SALICYLATE TOP SCH (17:04)
[2018-11-09] MEDS ORDERED: MAGNESIUM HYDROXIDE SUSP 30 ML UDCUP PO PRN (17:04)
[2018-11-09] MEDS ORDERED: MECLIZINE 25 MG TABLET PO PRN (17:04)
[2018-11-09] MEDS: METOPROLOL SUCCINATE XL 50 MG TABLET PO SCH (21:02)
[2018-11-09] MEDS: MEMANTINE 10 MG TABLET PO SCH (21:03)
[2018-11-09] MEDS: GABAPENTIN 100 MG CAPSULE PO SCH (21:03)
[2018-11-09] MEDS: PANTOPRAZOLE 40 MG VIAL IV SCH (21:10)
[2018-11-09 21:29] LABS: Hematocrit 35.4 VOL% (35.7-47.0)
[2018-11-09 21:38] LABS: INR 2.3
[2018-11-09 21:39] LABS: PT Patient Result 24.8 SECS
[2018-11-10 01:42] LABS: Calcium 8.5 MG/DL (8.5-10.1); Osmolality,Calculated 277.4 MOS/KG (273-304); Potassium 4.4 MMOL/L (3.5-5.1)
[2018-11-10 02:03] LABS: Basophils # 0.1 10*3/uL (0.0-0.2); Basophils % 0.9 % (0.0-0.8); Eosinophils # 0.1 10*3/uL (0.0-0.87); Eosinophils % 1.8 % (0.00-10.9); Hemoglobin 10.9 GM/DL (12.0-16.0); Immature Granulocytes % 0.6 %; Immature Granulocytes Absolute 0.04 #; Lymphocytes # 2.9 10*3/uL (1.4-4.0); Lymphocytes % 43.5 % (21.3-54.2); Mean Corpuscular HGB Conc 31.1 GM/DL (32-36); Mean Corpuscular Hemoglobin 28 PG (27-34); Mean Corpuscular Volume 89.1 FL (87-102); Mean Platelet Volume 10.7 FL (9.6-12.0); Monocytes # 0.6 10*3/uL (0.11-0.8); Monocytes % 8.5 % (1.7-12.7); Neutrophils % 44.7 % (38.7-73.9); Platelet Count 292 T/CUMM (130-400); Red Blood Count 3.93 MC/CUMM (3.8-5.5); Red Cell Distribution Width 13.8 % (9.3-17.3); White Blood Count 6.7 T/CUMM (4-12)
[2018-11-10 02:16] LABS: PT Patient Result 21.9 SECS
[2018-11-10 07:10] LABS: Hematocrit 39.8 VOL% (35.7-47.0); Hemoglobin 12.2 GM/DL (12.0-16.0)
[2018-11-10] MEDS ORDERED: CALCIUM (CARBONATE) 500 MG TABLET PO SCH (09:00)
[2018-11-10] MEDS ORDERED: FERROUS SULFATE 325 MG TABLET PO SCH (09:00)
[2018-11-10] MEDS ORDERED: amLODIPine 10 MG TABLET PO SCH (09:00)
[2018-11-10] MEDS ORDERED: LORATADINE 10 MG TABLET PO SCH (09:00)
[2018-11-10] MEDS ORDERED: traMADol 50 MG TABLET PO SCH (09:00)
[2018-11-10] MEDS ORDERED: ATORVASTATIN 10 MG TABLET PO SCH (09:00)
[2018-11-10] MEDS ORDERED: POTASSIUM CHLORIDE 20 MEQ TABLET PO SCH (09:00)
[2018-11-10] MEDS ORDERED: SERTRALINE 50 MG TABLET PO SCH (09:00)
[2018-11-10] MEDS ORDERED: FOLIC ACID 1 MG TABLET PO SCH (09:00)
[2018-11-10] MEDS: GABAPENTIN 100 MG CAPSULE PO SCH (09:56)
[2018-11-10] MEDS: MEMANTINE 10 MG TABLET PO SCH (09:57)
[2018-11-10] MEDS: METOPROLOL SUCCINATE XL 50 MG TABLET PO SCH (09:57)
[2018-11-10] MEDS: PANTOPRAZOLE 40 MG VIAL IV SCH (09:59)
[2018-11-10 11:51] LABS: Hematocrit 38.7 VOL% (35.7-47.0); Hemoglobin 12.1 GM/DL (12.0-16.0)
[2018-11-10 15:51] VITALS: BP 140/68
== END 2018-11-10 16:10 ==
LOC: EDUNIT# → EDBD → N.ED 11:28 → N.4E 11:28
PROVIDERS: ADMIT Internal Medicine; ATTEND Internal Medicine

== ENCOUNTER 2019-05-24 13:19 | Inpatient (IN) ==
[2019-05-24] MEDS ORDERED: SODIUM CHLORIDE 0.9% 500 ML IV STA (14:02)
[2019-05-24 15:05] LABS: Basophils % 0.8 % (0.0-0.8); Eosinophils # 0.1 10*3/uL (0.0-0.87); Eosinophils % 1.2 % (0.00-10.9); Hematocrit 43.7 VOL% (35.7-47.0); Hemoglobin 13.5 GM/DL (12.0-16.0); Immature Granulocytes % 0.2 %; Immature Granulocytes Absolute 0.01 #; Lymphocytes # 2.3 10*3/uL (1.4-4.0); Lymphocytes % 45.5 % (21.3-54.2); Mean Corpuscular HGB Conc 30.9 GM/DL (32-36); Mean Corpuscular Volume 88.8 FL (87-102); Mean Platelet Volume 10.2 FL (9.6-12.0); Monocytes % 10.5 % (1.7-12.7); Neutrophils % 41.8 % (38.7-73.9); Platelet Count 234 T/CUMM (130-400); Red Blood Count 4.92 MC/CUMM (3.8-5.5); Red Cell Distribution Width 14.3 % (9.3-17.3)
[2019-05-24 15:20] LABS: Apearance,Urine Slightly Hazy (Clear); Bilirubin,Urine Negative (Negative); Blood, Urine Small mg/dL (Negative); Glucose,Urine (UA) Negative (Negative); Hyaline Casts,Urine 9 /LPF (0-3); Ketones,Urine 5 mg/dL (Negative); Mucus,Urine Occasional /LPF (Occasional); Nitrite,Urine Negative (Negative); Protein,Urine Negative; RBC,Urine 1 /HPF (0-4); Squamous Epithelial Cell,Urine Occasional /HPF (0-10); Urine Color Yellow (Yellow); Urine Specific Gravity 1.023 (1.001-1.035); Urine Urobilinogen < 2.0 EU/DL (0.2-1.0)
[2019-05-24 15:26] LABS: Alanine Aminotransferase 28 U/L (13-56); Albumin 3.5 G/DL (3.4-5.0); Alkaline Phosphatase 148 U/L (45-117); Aspartate Amino Transferase 37 U/L (0-37); Bilirubin,Total < 0.39 MG/DL (0.2-1.0); Blood Urea Nitrogen 26 MG/DL (7-18); Calcium 8.9 MG/DL (8.5-10.1); Glucose 81 MG/DL (74-106); Osmolality,Calculated 276.8 MOS/KG (273-304); Total Protein 8.5 G/DL (6.4-8.3)
[2019-05-24] MEDS ORDERED: ALBUTEROL 2.5 MG/3 ML NEB RESP TX PRN (17:45)
[2019-05-24] MEDS ORDERED: guaiFENesin 200 MG/10 ML UDCUP PO PRN (17:52)
[2019-05-24] MEDS ORDERED: MAGNESIUM HYDROXIDE SUSP 30 ML UDCUP PO PRN (17:52)
[2019-05-24] MEDS ORDERED: MECLIZINE 25 MG TABLET PO PRN (17:52)
[2019-05-24] MEDS ORDERED: ACETAMINOPHEN 325 MG TABLET PO PRN (17:52)
[2019-05-24] MEDS ORDERED: PANTOPRAZOLE 40 MG VIAL IV SCH (18:00)
[2019-05-24] MEDS ORDERED: MEMANTINE 10 MG TABLET PO SCH (21:00)
[2019-05-24] MEDS ORDERED: POLYETHYLENE GLYCOL POWDER 17 GM PACK PO SCH (21:00)
[2019-05-24] MEDS ORDERED: GABAPENTIN 100 MG CAPSULE PO SCH (21:00)
[2019-05-24] MEDS ORDERED: PANTOPRAZOLE 40 MG TABLET PO SCH (21:00)
[2019-05-25 06:19] LABS: Basophils % 0.6 % (0.0-0.8); Eosinophils # 0.1 10*3/uL (0.0-0.87); Eosinophils % 1.3 % (0.00-10.9); Hematocrit 40.7 VOL% (35.7-47.0); Hemoglobin 12.8 GM/DL (12.0-16.0); Immature Granulocytes % 0.2 %; Immature Granulocytes Absolute 0.01 #; Lymphocytes % 41.1 % (21.3-54.2); Mean Corpuscular HGB Conc 31.4 GM/DL (32-36); Mean Platelet Volume 10.2 FL (9.6-12.0); Monocytes % 9.6 % (1.7-12.7); Neutrophils % 47.2 % (38.7-73.9); Platelet Count 222 T/CUMM (130-400); Red Blood Count 4.68 MC/CUMM (3.8-5.5); Red Cell Distribution Width 14.2 % (9.3-17.3); White Blood Count 4.8 T/CUMM (4-12)
[2019-05-25 06:45] LABS: Albumin 3.3 G/DL (3.4-5.0); Bilirubin,Total 0.7 MG/DL (0.2-1.0); Calcium 8.8 MG/DL (8.5-10.1); Osmolality,Calculated 278.5 MOS/KG (273-304); Total Protein 7.9 G/DL (6.4-8.3)
[2019-05-25] MEDS ORDERED: METOPROLOL SUCCINATE XL 50 MG TABLET PO SCH (08:00)
[2019-05-25] MEDS ORDERED: FAMOTIDINE 20 MG/2 ML VIAL IV SCH (08:00)
[2019-05-25] MEDS ORDERED: FOLIC ACID 1 MG TABLET PO SCH (09:00)
[2019-05-25] MEDS ORDERED: SERTRALINE 25 MG TABLET PO SCH (09:00)
[2019-05-25] MEDS ORDERED: POTASSIUM CHLORIDE 20 MEQ TABLET PO SCH (09:00)
[2019-05-25] MEDS ORDERED: CHOLECALCIFEROL 1,000 UNIT TABLET PO SCH (09:00)
[2019-05-25] MEDS ORDERED: FERROUS SULFATE 325 MG TABLET PO SCH (09:00)
[2019-05-25] MEDS ORDERED: CALCIUM (CARBONATE) 500 MG TABLET PO SCH (09:00)
[2019-05-25] MEDS: LACTATED RINGERS 1,000 ML IV SCH ×4 (09:02→23:53)
[2019-05-25] MEDS: traMADol 50 MG TABLET PO SCH ×3 (09:03→09:48)
[2019-05-25] MEDS: CLOPIDOGREL 75 MG TABLET PO SCH ×3 (09:03→09:48)
[2019-05-25] MEDS: ATORVASTATIN 10 MG TABLET PO SCH ×3 (09:03→09:48)
[2019-05-25] MEDS: ASPIRIN EC 325 MG TABLET PO SCH ×3 (09:04→09:47)
[2019-05-25] MEDS: TROLAMINE SALICYLATE 10% CREAM 85 GM TUBE TOP SCH ×3 (09:14→21:18)
[2019-05-25] MEDS ORDERED: ONDANSETRON 4 MG/2 ML VIAL ONE (10:04)
[2019-05-25] MEDS ORDERED: ONDANSETRON 4 MG/2 ML VIAL IV PRN (10:05)
[2019-05-25] MEDS ORDERED: PANTOPRAZOLE 40 MG VIAL IV ONE (17:53)
[2019-05-25] MEDS ORDERED: PANTOPRAZOLE 40 MG TABLET PO SCH (19:00)
[2019-05-25] MEDS: FAMOTIDINE 20 MG/2 ML VIAL IV SCH (21:11)
[2019-05-26 04:49] LABS: Basophils % 0.7 % (0.0-0.8); Eosinophils # 0.1 10*3/uL (0.0-0.87); Eosinophils % 1.3 % (0.00-10.9); Hematocrit 33.8 VOL% (35.7-47.0); Immature Granulocytes % 0.4 %; Immature Granulocytes Absolute 0.02 #; Lymphocytes # 1.7 10*3/uL (1.4-4.0); Lymphocytes % 38.9 % (21.3-54.2); Mean Corpuscular HGB Conc 32.5 GM/DL (32-36); Mean Corpuscular Volume 85.8 FL (87-102); Mean Platelet Volume 9.9 FL (9.6-12.0); Monocytes % 14.1 % (1.7-12.7); Neutrophils % 44.6 % (38.7-73.9); Platelet Count 194 T/CUMM (130-400); Red Blood Count 3.94 MC/CUMM (3.8-5.5); Red Cell Distribution Width 14.1 % (9.3-17.3); White Blood Count 4.5 T/CUMM (4-12)
[2019-05-26 05:16] LABS: Calcium 8.3 MG/DL (8.5-10.1); Osmolality,Calculated 271.7 MOS/KG (273-304)
[2019-05-26] MEDS ORDERED: MAGNESIUM SULF RIDER 4 GM in PREMIX 1 EACH IV PRN (05:37)
[2019-05-26] MEDS: MAGNESIUM SULF RIDER 2 GM in PREMIX 1 EACH IV PRN ×2 (06:06→07:54)
[2019-05-26] MEDS: LACTATED RINGERS 1,000 ML IV SCH ×4 (06:07→21:18)
[2019-05-26] MEDS ORDERED: MAGNESIUM SULF RIDER 4 GM in PREMIX 1 EACH IV ONE (07:56)
[2019-05-26] MEDS: ASPIRIN EC 325 MG TABLET PO SCH (10:14)
[2019-05-26] MEDS: traMADol 50 MG TABLET PO SCH (10:14)
[2019-05-26] MEDS: ATORVASTATIN 10 MG TABLET PO SCH (10:15)
[2019-05-26] MEDS: CLOPIDOGREL 75 MG TABLET PO SCH (10:15)
[2019-05-26] MEDS: TROLAMINE SALICYLATE 10% CREAM 85 GM TUBE TOP SCH ×3 (10:16→21:24)
[2019-05-26] MEDS: FAMOTIDINE 20 MG/2 ML VIAL IV SCH ×2 (10:17→21:19)
[2019-05-26] MEDS ORDERED: methylPREDNISolone SOD SUC 125 MG/2 ML VIAL IV ONE (13:27)
[2019-05-26] MEDS ORDERED: RACEPINEPHRINE 0.5 ML NEB RESP TX PRN (13:27)
[2019-05-26] MEDS: METOCLOPRAMIDE 10 MG/2 ML VIAL IV SCH ×3 (15:02→21:19)
[2019-05-27] MEDS: METOCLOPRAMIDE 10 MG/2 ML VIAL IV SCH ×4 (03:00→21:59)
[2019-05-27] MEDS: LACTATED RINGERS 1,000 ML IV SCH ×3 (07:19→13:08)
[2019-05-27 07:26] LABS: Calcium 8.1 MG/DL (8.5-10.1)
[2019-05-27] MEDS: traMADol 50 MG TABLET PO SCH (12:05)
[2019-05-27] MEDS: CLOPIDOGREL 75 MG TABLET PO SCH (12:05)
[2019-05-27] MEDS: ATORVASTATIN 10 MG TABLET PO SCH (12:05)
[2019-05-27] MEDS: ASPIRIN EC 325 MG TABLET PO SCH (12:05)
[2019-05-27] MEDS: TROLAMINE SALICYLATE 10% CREAM 85 GM TUBE TOP SCH ×3 (12:06→22:04)
[2019-05-27] MEDS: FAMOTIDINE 20 MG/2 ML VIAL IV SCH ×2 (12:06→22:02)
[2019-05-28] MEDS: LACTATED RINGERS 1,000 ML IV SCH ×2 (07:25→10:52)
[2019-05-28] MEDS: METOCLOPRAMIDE 10 MG/2 ML VIAL IV SCH ×4 (09:09→22:40)
[2019-05-28] MEDS: ATORVASTATIN 10 MG TABLET PO SCH (10:51)
[2019-05-28] MEDS: FAMOTIDINE 20 MG/2 ML VIAL IV SCH ×2 (10:51→22:39)
[2019-05-28] MEDS: CLOPIDOGREL 75 MG TABLET PO SCH (10:51)
[2019-05-28] MEDS: traMADol 50 MG TABLET PO SCH (10:51)
[2019-05-28] MEDS: ASPIRIN EC 325 MG TABLET PO SCH (10:51)
[2019-05-28] MEDS: amLODIPine 10 MG TABLET PO SCH (10:51)
[2019-05-28] MEDS: TROLAMINE SALICYLATE 10% CREAM 85 GM TUBE TOP SCH ×3 (10:52→22:49)
[2019-05-29] MEDS: METOCLOPRAMIDE 10 MG/2 ML VIAL IV SCH ×3 (04:23→14:23)
[2019-05-29] MEDS: FAMOTIDINE 20 MG/2 ML VIAL IV SCH (08:30)
[2019-05-29] MEDS: LACTATED RINGERS 1,000 ML IV SCH ×2 (08:31→13:53)
[2019-05-29] MEDS: TROLAMINE SALICYLATE 10% CREAM 85 GM TUBE TOP SCH ×3 (13:52→21:29)
[2019-05-29] MEDS: traMADol 50 MG TABLET PO SCH (14:13)
[2019-05-29] MEDS: ATORVASTATIN 10 MG TABLET PO SCH (14:23)
[2019-05-29] MEDS: CLOPIDOGREL 75 MG TABLET PO SCH (14:23)
[2019-05-29] MEDS: ASPIRIN EC 325 MG TABLET PO SCH (14:23)
[2019-05-29] MEDS: amLODIPine 10 MG TABLET PO SCH (14:23)
[2019-05-29] MEDS: FAMOTIDINE 20 MG TABLET PO SCH (21:29)
[2019-05-29] MEDS: METOCLOPRAMIDE 10 MG/10 ML UDCUP PO SCH (21:29)
[2019-05-30 05:25] LABS: Basophils % 0.5 % (0.0-0.8); Eosinophils # 0.1 10*3/uL (0.0-0.87); Eosinophils % 2.2 % (0.00-10.9); Hematocrit 32.6 VOL% (35.7-47.0); Hemoglobin 10.8 GM/DL (12.0-16.0); Immature Granulocytes % 0.2 %; Immature Granulocytes Absolute 0.01 #; Lymphocytes # 1.8 10*3/uL (1.4-4.0); Lymphocytes % 32.9 % (21.3-54.2); Mean Corpuscular HGB Conc 33.1 GM/DL (32-36); Mean Corpuscular Volume 84.2 FL (87-102); Mean Platelet Volume 10.6 FL (9.6-12.0); Monocytes % 15.2 % (1.7-12.7); Platelet Count 205 T/CUMM (130-400); Red Blood Count 3.87 MC/CUMM (3.8-5.5); Red Cell Distribution Width 14.4 % (9.3-17.3); White Blood Count 5.5 T/CUMM (4-12)
[2019-05-30 05:43] LABS: Calcium 8.1 MG/DL (8.5-10.1); Osmolality,Calculated 268.8 MOS/KG (273-304)
[2019-05-30] MEDS: MAGNESIUM SULF RIDER 2 GM in PREMIX 1 EACH IV PRN (07:48)
[2019-05-30] MEDS: LACTATED RINGERS 1,000 ML IV SCH ×3 (07:48→22:30)
[2019-05-30] MEDS: ASPIRIN EC 325 MG TABLET PO SCH ×2 (07:49→09:28)
[2019-05-30] MEDS: METOCLOPRAMIDE 10 MG/10 ML UDCUP PO SCH ×4 (07:49→20:36)
[2019-05-30] MEDS: FAMOTIDINE 20 MG TABLET PO SCH ×3 (07:49→20:36)
[2019-05-30] MEDS: CLOPIDOGREL 75 MG TABLET PO SCH ×2 (07:49→09:29)
[2019-05-30] MEDS: ATORVASTATIN 10 MG TABLET PO SCH ×2 (07:49→09:28)
[2019-05-30] MEDS: amLODIPine 10 MG TABLET PO SCH (09:11)
[2019-05-30] MEDS: TROLAMINE SALICYLATE 10% CREAM 85 GM TUBE TOP SCH ×3 (09:28→20:36)
[2019-05-30] MEDS: traMADol 50 MG TABLET PO SCH (09:30)
[2019-05-30] MEDS: levETIRAcetam 500 MG TABLET PO SCH (20:36)
[2019-05-31 05:18] LABS: Basophils % 0.6 % (0.0-0.8); Eosinophils # 0.2 10*3/uL (0.0-0.87); Eosinophils % 3.2 % (0.00-10.9); Hematocrit 31.6 VOL% (35.7-47.0); Hemoglobin 10.3 GM/DL (12.0-16.0); Immature Granulocytes % 0.2 %; Immature Granulocytes Absolute 0.01 #; Lymphocytes # 1.7 10*3/uL (1.4-4.0); Lymphocytes % 36.8 % (21.3-54.2); Mean Corpuscular HGB Conc 32.6 GM/DL (32-36); Mean Corpuscular Volume 84.3 FL (87-102); Mean Platelet Volume 10.1 FL (9.6-12.0); Monocytes % 16.5 % (1.7-12.7); Neutrophils % 42.7 % (38.7-73.9); Platelet Count 179 T/CUMM (130-400); Red Blood Count 3.75 MC/CUMM (3.8-5.5); Red Cell Distribution Width 14.6 % (9.3-17.3); White Blood Count 4.7 T/CUMM (4-12)
[2019-05-31 05:38] LABS: Eosinophils 5 % (0-10); Lymphocytes 37 % (20-55); Segmented Neutrophils 49 % (50-85); Total Cells Counted 100
[2019-05-31 05:39] LABS: Hypochromasia 1+; Platelet Estimate Adequate
[2019-05-31] MEDS: amLODIPine 10 MG TABLET PO SCH (09:45)
[2019-05-31] MEDS: ASPIRIN EC 325 MG TABLET PO SCH (09:45)
[2019-05-31] MEDS: ATORVASTATIN 10 MG TABLET PO SCH (09:45)
[2019-05-31] MEDS: CLOPIDOGREL 75 MG TABLET PO SCH (09:46)
[2019-05-31] MEDS: levETIRAcetam 500 MG TABLET PO SCH ×2 (09:46→22:05)
[2019-05-31] MEDS: METOCLOPRAMIDE 10 MG/10 ML UDCUP PO SCH ×4 (09:46→22:04)
[2019-05-31] MEDS: FAMOTIDINE 20 MG TABLET PO SCH ×2 (09:46→22:05)
[2019-05-31] MEDS: traMADol 50 MG TABLET PO SCH (09:46)
[2019-05-31] MEDS: TROLAMINE SALICYLATE 10% CREAM 85 GM TUBE TOP SCH ×3 (12:31→22:03)
[2019-05-31] MEDS: LACTATED RINGERS 1,000 ML IV SCH (15:37)
[2019-06-01] MEDS: LACTATED RINGERS 1,000 ML IV SCH ×3 (05:32→21:03)
[2019-06-01 05:39] LABS: Hematocrit 37.1 VOL% (35.7-47.0); Hemoglobin 12.3 GM/DL (12.0-16.0)
[2019-06-01] MEDS: ASPIRIN EC 325 MG TABLET PO SCH (10:09)
[2019-06-01] MEDS: amLODIPine 10 MG TABLET PO SCH (10:09)
[2019-06-01] MEDS: FAMOTIDINE 20 MG TABLET PO SCH ×2 (10:09→22:27)
[2019-06-01] MEDS: ATORVASTATIN 10 MG TABLET PO SCH (10:09)
[2019-06-01] MEDS: traMADol 50 MG TABLET PO SCH (10:09)
[2019-06-01] MEDS: TROLAMINE SALICYLATE 10% CREAM 85 GM TUBE TOP SCH ×3 (10:10→22:27)
[2019-06-01] MEDS: METOCLOPRAMIDE 10 MG/10 ML UDCUP PO SCH ×4 (10:10→22:27)
[2019-06-01] MEDS: levETIRAcetam 500 MG TABLET PO SCH ×2 (10:10→22:27)
[2019-06-01] MEDS: CLOPIDOGREL 75 MG TABLET PO SCH (10:10)
[2019-06-02] MEDS: CLOPIDOGREL 75 MG TABLET PO SCH (08:56)
[2019-06-02] MEDS: ASPIRIN EC 325 MG TABLET PO SCH (08:57)
[2019-06-02] MEDS: ATORVASTATIN 10 MG TABLET PO SCH (08:57)
[2019-06-02] MEDS: amLODIPine 10 MG TABLET PO SCH (08:57)
[2019-06-02] MEDS: levETIRAcetam 500 MG TABLET PO SCH (08:57)
[2019-06-02] MEDS: FAMOTIDINE 20 MG TABLET PO SCH (08:57)
[2019-06-02] MEDS: METOCLOPRAMIDE 10 MG/10 ML UDCUP PO SCH ×2 (08:58→12:04)
[2019-06-02] MEDS: TROLAMINE SALICYLATE 10% CREAM 85 GM TUBE TOP SCH (08:59)
[2019-06-02] MEDS: LACTATED RINGERS 1,000 ML IV SCH (12:05)
[2019-06-02 12:38] VITALS: BP 149/88
== END 2019-06-02 14:22 | DRG 92 ==
LOC: EDBD → EDUNIT# → N.ED 13:19 → SUATTDRO 17:45 → N.EDINP 17:45 → N.ICU 19:09 → N.5E 05-26 18:12
PROVIDERS: ADMIT Internal Medicine; ATTEND Internal Medicine Nephrology